=== PATIENT | female | born 1930 | race Two or more races ===

== ENCOUNTER 2017-05-18 01:00 | Inpatient (IN) | payer MEDICARE, OTHER ==
[~2017-05-18] VITALS: Ht 160 cm; Wt 68.9 kg
[2017-05-18] MEDS ORDERED: PANTOPRAZOLE SODIUM 40 MG VIAL IV ONE (01:30)
[2017-05-18] MEDS ORDERED: ONDANSETRON 4 MG/2 ML VIAL IV ONE (01:30)
[2017-05-18] MEDS ORDERED: IV NORMAL SALINE 1000 ML BAG IV ONE (01:30)
[2017-05-18 02:00] LABS: BASOPHILS % (AUTO) 0.4 % (0.0-2.0); EOSINOPHILS # (AUTO) 0.1 K/uL (0.0-0.7); EOSINOPHILS % (AUTO) 1.4 % (0.0-7.0); HEMATOCRIT 37.5 % (31.2-41.9); HEMOGLOBIN 12.5 g/dL (10.9-14.3); LYMPHOCYTES # (AUTO) 1.1 K/uL (20.0-40.0); LYMPHOCYTES % (AUTO) 11.5 % (20.5-51.5); MEAN CORPUSCULAR HEMOGLOBIN 30.9 uug (24.7-32.8); MEAN CORPUSCULAR HGB CONC 33 g/dL (32.3-35.6); MEAN CORPUSCULAR VOLUME 93.1 fL (75.5-95.3); MONOCYTES % (AUTO) 10.7 % (0.0-11.0); PLATELET COUNT (AUTO) 191 K/uL (179-408); RED BLOOD CELL COUNT(AUTO) 4.02 MIL/uL (3.63-4.92); WHITE BLOOD COUNT (AUTO) 9.2 K/uL (3.8-11.8)
--- NOTE | 2017-05-18 02:01 | NUR ---
PT IN BED IN ROUTE TO CT
[2017-05-18 02:09] LABS: CARBON DIOXIDE 30 mmol/L (21-32); CHLORIDE 103 mmol/L (98-107); CREATININE 1.5 mg/dL (0.6-1.3); GLUCOSE 121 mg/dL (74-106); POTASSIUM 4.1 mmol/L (3.5-5.1); UREA NITROGEN, BLOOD 48 mg/dL (7-18)
[2017-05-18 02:19] LABS: ALANINE AMINOTRANSFERASE 20 U/L (14-59); ALKALINE PHOSPHATASE 112 U/L (50-136); ASPARTATE AMINOTRANSFERASE 19 U/L (15-37); BILIRUBIN,DIRECT 0.2 mg/dL (0.0-0.2); BILIRUBIN,TOTAL 0.6 mg/dL (0.2-1.0); LIPASE 68 U/L (73-393); TOTAL PROTEIN, SERUM 8.1 g/dL (6.4-8.2)
[2017-05-18] MEDS ORDERED: ONDANSETRON 4 MG/2 ML VIAL ONE (02:19)
[2017-05-18] MEDS ORDERED: PANTOPRAZOLE SODIUM 40 MG VIAL ONE (02:19)
--- NOTE | 2017-05-18 02:19 | NUR ---
PT IN BED. PT RETURNS FROM CT.
[2017-05-18] MEDS ORDERED: CHLO473M3 PO (02:21)
[2017-05-18] MEDS ORDERED: SPIR25TA4 GT (02:21)
[2017-05-18] MEDS ORDERED: ALBU2.5V38 IH (02:21)
[2017-05-18] MEDS ORDERED: LANS30CA56 GT (02:21)
[2017-05-18] MEDS ORDERED: MAGN400O6 GT (02:21)
[2017-05-18] MEDS ORDERED: IPRA0.2S48 IH (02:21)
[2017-05-18] MEDS ORDERED: CALCIUM CARBONATE GT (02:21)
[2017-05-18] MEDS ORDERED: ACET-2154 GT (02:21)
[2017-05-18] MEDS ORDERED: AMANTADINE GT (02:21)
[2017-05-18] MEDS ORDERED: NA P133E RC (02:21)
[2017-05-18] MEDS ORDERED: LEVO125T8 GT (02:21)
[2017-05-18] MEDS ORDERED: APIX2.5T PO (02:21)
[2017-05-18] MEDS ORDERED: METO50TA16 GT (02:21)
[2017-05-18] MEDS ORDERED: HYDR-4076 GT (02:21)
[2017-05-18] MEDS ORDERED: DILT-32 GT (02:21)
[2017-05-18] MEDS ORDERED: FURO40TA5 GT (02:21)
[2017-05-18] MEDS ORDERED: LOSA50TA21 GT (02:21)
[2017-05-18] MEDS ORDERED: BISA10SU8 RC (02:21)
--- NOTE | 2017-05-18 02:58 | NUR ---
PT IN BED. VSS. BREATH SOUNDS NORMAL AND UNLABORED. NO SIGNS OF DISTRESS NOTICED AT THIS TIME.
--- NOTE | 2017-05-18 03:02 | NUR ---
REPORT GIVEN TO CHERIE MELISSA IN TELE
--- NOTE | 2017-05-18 03:56 | NUR ---
Received pt 0339 awake and nonverbal. Pt noted to have maroon colored rectal discharge. Tele noted to be A-fib with HR in the 120's. No distress noted at this time. On 3L O2 via trach collar. Bed in low, locked position. Bed alarm on. Call light within reach.
[2017-05-18 03:59] VITALS: BP 123/63
[2017-05-18] MEDS: IV NS 1000 ML 1,000 ML IV PRN ×2 (05:49→23:51)
[2017-05-18 07:05] LABS: BASOPHILS % (AUTO) 0.3 % (0.0-2.0); EOSINOPHILS # (AUTO) 0.1 K/uL (0.0-0.7); EOSINOPHILS % (AUTO) 1.7 % (0.0-7.0); HEMATOCRIT 36.6 % (31.2-41.9); HEMOGLOBIN 12.1 g/dL (10.9-14.3); LYMPHOCYTES # (AUTO) 1.1 K/uL (20.0-40.0); LYMPHOCYTES % (AUTO) 13.7 % (20.5-51.5); MEAN CORPUSCULAR HEMOGLOBIN 31.3 uug (24.7-32.8); MEAN CORPUSCULAR HGB CONC 33 g/dL (32.3-35.6); MEAN CORPUSCULAR VOLUME 94.2 fL (75.5-95.3); MONOCYTES # (AUTO) 0.7 K/uL (2.0-10.0); MONOCYTES % (AUTO) 9.3 % (0.0-11.0); NEUTROPHILS # (AUTO) 5.9 K/uL (1.8-8.9); PLATELET COUNT (AUTO) 188 K/uL (179-408); RED BLOOD CELL COUNT(AUTO) 3.88 MIL/uL (3.63-4.92); WHITE BLOOD COUNT (AUTO) 7.9 K/uL (3.8-11.8)
--- NOTE | 2017-05-18 07:15 | NUR ---
IV line noted to be leaking and removed. Pt is hard stick, called MD for midline order. Trach site care provided and dressing change done; suctioned trach PRN thick greenish mucus noted. Pt needs frequent suctioning. Pt tolerated suction well. Tele noted to be a-fib with HR in the 120's. Pain management provided. Daughter at bedside, awaiting MD for possible EGD procedure today. Pt resting comfortably at this time. Report given to Flavia MELISSA.
[2017-05-18 07:22] LABS: ALANINE AMINOTRANSFERASE 21 U/L (14-59); ALKALINE PHOSPHATASE 107 U/L (50-136); ASPARTATE AMINOTRANSFERASE 25 U/L (15-37); BILIRUBIN,TOTAL 0.6 mg/dL (0.2-1.0); CARBON DIOXIDE 29 mmol/L (21-32); CHLORIDE 105 mmol/L (98-107); CREATININE 1.3 mg/dL (0.6-1.3); GLUCOSE 104 mg/dL (74-106); MAGNESIUM 2.7 mg/dL (1.8-2.4); PHOSPHOROUS 3.7 mg/dL (2.5-4.9); POTASSIUM 4.1 mmol/L (3.5-5.1); TOTAL PROTEIN, SERUM 7.3 g/dL (6.4-8.2); UREA NITROGEN, BLOOD 46 mg/dL (7-18)
--- NOTE | 2017-05-18 07:30 | NUR ---
Sleeping, comfortable, daughter at bedside. Trach to aerosol at 6L FIO2 30%. GT clamped, NPO instructed. Plan for EGD, daughter will wait for MD. No IV access, unsuccessful attempts, will get order for midline
[2017-05-18] MEDS: MORPHINE SULFATE 4 MG/1 ML DISP.SYRIN IV PRN (07:34)
[2017-05-18 08:17] LABS: THYROID STIMULATING HORMONE 1.031 mIU/mL (0.358-3.740)
[2017-05-18] MEDS ORDERED: DILTIAZEM HCL CD 120 MG CAP.SR.24H PO SCH (08:45)
[2017-05-18] MEDS ORDERED: FLEET ENEMA 133 ML BOTTLE RC PRN (08:45)
[2017-05-18] MEDS ORDERED: BISACODYL 10 MG SUPP.RECT RC PRN (08:45)
[2017-05-18] MEDS ORDERED: ACETAMINOPHEN 325 MG TABLET GT PRN (08:45)
[2017-05-18] MEDS ORDERED: IPRATROPIUM BROMIDE 0.5 MG/2.5 ML NEBU IH PRN (08:45)
[2017-05-18] MEDS ORDERED: ALBUTEROL SULFATE 2.5 MG/3 ML NEBU IH PRN (08:45)
[2017-05-18] MEDS ORDERED: MAGNESIUM HYDROXIDE 30 ML LIQUID UDC GT PRN (08:45)
[2017-05-18] MEDS ORDERED: PANTOPRAZOLE ORAL SUSPENSION 40 MG SUSPDR.PKT GT SCH (08:45)
[2017-05-18] MEDS ORDERED: ACETAMINOPHEN 650 MG/20.3 ML LIQUID UDC GT PRN (09:00)
[2017-05-18] MEDS ORDERED: LOSARTAN POTASSIUM 50 MG TABLET GT SCH (09:00)
[2017-05-18] MEDS ORDERED: CALCIUM CARBONATE 500 MG TABLET PO SCH (09:00)
[2017-05-18] MEDS ORDERED: ALBUTEROL SULFATE 2.5 MG/ 0.5 ML NEBU NEB PRN (09:00)
[2017-05-18] MEDS: FUROSEMIDE 40 MG TABLET GT SCH (09:25)
[2017-05-18] MEDS: LEVOTHYROXINE SODIUM 125 MCG TABLET GT SCH (09:25)
[2017-05-18] MEDS: SPIRONOLACTONE 25 MG TABLET GT SCH (09:25)
[2017-05-18] MEDS: CALCIUM CARBONATE 500 MG TABLET GT SCH ×2 (09:26→21:51)
[2017-05-18] MEDS: METOPROLOL TARTRATE 50 MG TABLET GT SCH ×2 (09:26→21:51)
--- NOTE | 2017-05-18 09:26 | NUR ---
HR 135 Afib; BP 106/54, Carvedilol given, will monitor BP
[2017-05-18] MEDS: PANTOPRAZOLE SODIUM 40 MG VIAL IV SCH ×2 (09:27→21:50)
[2017-05-18] MEDS: CHLORHEXIDINE GLUCONATE 15 ML MOUTHWASH MM SCH ×2 (09:27→21:51)
[2017-05-18] MEDS: Z GUARD REMEDY PASTE 57 GM TUBE TOP SCH ×2 (09:27→21:51)
[2017-05-18] MEDS: AMANTADINE HCL 100 MG CAPSULE GT SCH ×2 (09:27→21:50)
[2017-05-18 10:53] VITALS: BP 90/54
[2017-05-18] MEDS ORDERED: FIBERSOURCE HN 1000ML LIQUID GT SCH (11:15)
--- NOTE | 2017-05-18 11:15 | NUR ---
With BM to bloody stool, specimen sent to lab. Incontinence care done. 1st step mattress placed. Repositioned in bed comfortably. Midline ordered, waiting for nurse.
[2017-05-18] MEDS ORDERED: DILTIAZEM HCL 60 MG TABLET GT SCH (12:00)
[2017-05-18 12:13] LABS: BASOPHILS % (AUTO) 0.4 % (0.0-2.0); EOSINOPHILS # (AUTO) 0.2 K/uL (0.0-0.7); EOSINOPHILS % (AUTO) 3.5 % (0.0-7.0); HEMATOCRIT 35.4 % (31.2-41.9); HEMOGLOBIN 11.6 g/dL (10.9-14.3); LYMPHOCYTES # (AUTO) 1.1 K/uL (20.0-40.0); LYMPHOCYTES % (AUTO) 17.4 % (20.5-51.5); MEAN CORPUSCULAR HEMOGLOBIN 31.1 uug (24.7-32.8); MEAN CORPUSCULAR HGB CONC 33 g/dL (32.3-35.6); MONOCYTES # (AUTO) 0.6 K/uL (2.0-10.0); MONOCYTES % (AUTO) 10.4 % (0.0-11.0); NEUTROPHILS # (AUTO) 4.2 K/uL (1.8-8.9); NEUTROPHILS % (AUTO) 68.3 % (38.5-71.5); PLATELET COUNT (AUTO) 172 K/uL (179-408); RED BLOOD CELL COUNT(AUTO) 3.73 MIL/uL (3.63-4.92); WHITE BLOOD COUNT (AUTO) 6.1 K/uL (3.8-11.8)
[2017-05-18 12:36] LABS: *OCCULT BLOOD STOOL POSITIVE (NEGATIVE)
[2017-05-18] MEDS ORDERED: hydrALAZINE HCL 25 MG TABLET GT SCH (14:00)
[2017-05-18 15:01] VITALS: BP 97/51
--- NOTE | 2017-05-18 16:00 | NUR ---
Midline placed to Left upper arm, IVF started
--- NOTE | 2017-05-18 18:09 | NUR ---
Trach suctioned to thick yellowish greenish secretions. Oral care done. Tele Afib 118-122. Repositioned comfortably
--- NOTE | 2017-05-18 19:30 | NUR ---
Pt a/a, with trach collar in place no distress noted.
[2017-05-18 20:00] VITALS: BP 108/54
[2017-05-19 00:18] VITALS: BP 136/67
[2017-05-19 04:00] VITALS: BP 131/65
[2017-05-19] MEDS: LEVOTHYROXINE SODIUM 125 MCG TABLET GT SCH (06:44)
[2017-05-19] MEDS ORDERED: DILTIAZEM HCL 30 MG TABLET PO SCH (09:00)
[2017-05-19 09:17] LABS: ABG BASE EXCESS -0.6 mmol/L; ABG HCO3 23.4 mmol/L; ABG PO2 99.1 mmHg (75.0-100.0); ABG SITE RIGHT RADIAL; COHb 0.9 % (0.5-1.5); MetHb 0.3 % (0.0-1.5); O2Hb 96.6 % (94.0-97.0)
[2017-05-19] MEDS: SPIRONOLACTONE 25 MG TABLET GT SCH (09:41)
[2017-05-19] MEDS: PANTOPRAZOLE SODIUM 40 MG VIAL IV SCH ×2 (09:42→21:52)
[2017-05-19] MEDS: CALCIUM CARBONATE 500 MG TABLET GT SCH ×2 (09:42→21:53)
[2017-05-19] MEDS: DILTIAZEM HCL 30 MG TABLET GT SCH ×3 (09:42→21:52)
[2017-05-19] MEDS: FUROSEMIDE 40 MG TABLET GT SCH (09:42)
[2017-05-19] MEDS: METOPROLOL TARTRATE 50 MG TABLET GT SCH ×2 (09:42→21:53)
[2017-05-19] MEDS: Z GUARD REMEDY PASTE 57 GM TUBE TOP SCH ×2 (09:43→21:54)
[2017-05-19] MEDS: AMANTADINE HCL 100 MG CAPSULE GT SCH ×2 (09:44→21:53)
[2017-05-19] MEDS: CHLORHEXIDINE GLUCONATE 15 ML MOUTHWASH MM SCH ×2 (09:44→21:53)
--- NOTE | 2017-05-19 10:00 | NUR ---
Pt pulling on IV lines and P mist with her left hand. Pt was hitting TANK OPERATOR during am care. Decreased stimuli on pt and made pt more comfortable by repositioning pt and giving am care. will monitor pt.
--- NOTE | 2017-05-19 11:00 | NUR ---
Pt now attempting to pull on her G Tube. Prior intervention not effective. Hide tubings so that pt wont be able to pull her lines. Turned on tv for distraction. Will continue to monitor pt.
[2017-05-19] MEDS: MORPHINE SULFATE 4 MG/1 ML DISP.SYRIN IV PRN (11:39)
[2017-05-19 11:57] VITALS: BP 131/74
--- NOTE | 2017-05-19 12:00 | NUR ---
Called Dr malave got orders for mittens. Mittens applied on left hand for safety and prevent pt from pulling on her lines and Gtube.
--- NOTE | 2017-05-19 15:00 | NUR ---
Notified Dr Foley of pt EGD was canceled secondary pt was having uncontrolled rapid afib earlier. Pt currently have hr 100's afib and that metropolol was given earlier. Dr Foley to eval pt's cardiac meds. Call light is within reach. Started IV on right ac 20 gauge secondary to MIDLINE on left upper brachial line has too much pressure when IVF is being given.
[2017-05-19 15:54] VITALS: BP 144/78
[2017-05-19] MEDS: DIGOXIN 500 MCG/2 ML AMP IV SCH ×2 (16:41→22:36)
--- NOTE | 2017-05-19 18:37 | NUR ---
Dr urbina saw pt. DIG given as ordered. Pt's HR @ 102. Sputum sent. Call light is within within reach.
--- NOTE | 2017-05-19 19:20 | NUR ---
Received patient awake, non -verbal , not in distress. HOB elevated with trach collar connected to P mist FIO2 40%. GT clamped, Kept NPO. Continue care as planned.
[2017-05-19 20:00] VITALS: BP 146/62
--- NOTE | 2017-05-19 21:05 | NUR ---
Left message to answering service for Dr. Castellanos. RE: Pt NPO for EGD in AM , no IV fluid ordered. Awaiting for Dr Cox to call back for an order. Charge Nurse aware.
[2017-05-19] MEDS ORDERED: IV D5W-0.45% NS 1000 ML BAG IV SCH ×2 (21:15→22:15)
--- NOTE | 2017-05-19 21:18 | NUR ---
Dr Cox called back with new order of D5 1/2 NS at 50 cc/hour.
[2017-05-19] MEDS ORDERED: IV D5W-0.45% NS 1000 ML BAG IV ONE (21:45)
[2017-05-19] MEDS: IV D5 1/2 NS 1000 ML 1,000 ML IV PRN (22:55)
[2017-05-20] VITALS: BP 95/56
[2017-05-20] MEDS: DILTIAZEM HCL 30 MG TABLET GT SCH ×4 (02:24→20:24)
[2017-05-20 04:00] VITALS: BP 154/47
[2017-05-20] MEDS: LEVOTHYROXINE SODIUM 125 MCG TABLET GT SCH (06:40)
[2017-05-20 07:03] LABS: BASOPHILS % (AUTO) 0.4 % (0.0-2.0); EOSINOPHILS # (AUTO) 0.2 K/uL (0.0-0.7); HEMATOCRIT 38.3 % (31.2-41.9); HEMOGLOBIN 12.4 g/dL (10.9-14.3); LYMPHOCYTES % (AUTO) 16.2 % (20.5-51.5); MEAN CORPUSCULAR HEMOGLOBIN 30.8 uug (24.7-32.8); MEAN CORPUSCULAR HGB CONC 33 g/dL (32.3-35.6); MEAN CORPUSCULAR VOLUME 94.8 fL (75.5-95.3); MONOCYTES # (AUTO) 0.6 K/uL (2.0-10.0); MONOCYTES % (AUTO) 9.7 % (0.0-11.0); NEUTROPHILS # (AUTO) 4.2 K/uL (1.8-8.9); NEUTROPHILS % (AUTO) 70.7 % (38.5-71.5); PLATELET COUNT (AUTO) 183 K/uL (179-408); RED BLOOD CELL COUNT(AUTO) 4.04 MIL/uL (3.63-4.92)
--- NOTE | 2017-05-20 07:08 | NUR ---
Kept NPO as ordered. No gignificant event reported all night. All needs attended and met. Continue current plan of care.
[2017-05-20 07:24] LABS: CARBON DIOXIDE 27 mmol/L (21-32); CHLORIDE 108 mmol/L (98-107); GLUCOSE 99 mg/dL (74-106); MAGNESIUM 1.9 mg/dL (1.8-2.4); PHOSPHOROUS 2.6 mg/dL (2.5-4.9); POTASSIUM 3.6 mmol/L (3.5-5.1); UREA NITROGEN, BLOOD 29 mg/dL (7-18)
[2017-05-20] MEDS: SPIRONOLACTONE 25 MG TABLET GT SCH (08:22)
[2017-05-20] MEDS: CALCIUM CARBONATE 500 MG TABLET GT SCH ×2 (08:23→20:24)
[2017-05-20] MEDS: METOPROLOL TARTRATE 50 MG TABLET GT SCH ×2 (08:23→20:24)
[2017-05-20] MEDS: FUROSEMIDE 40 MG TABLET GT SCH (08:23)
[2017-05-20] MEDS: PANTOPRAZOLE SODIUM 40 MG VIAL IV SCH (08:24)
[2017-05-20] MEDS: CHLORHEXIDINE GLUCONATE 15 ML MOUTHWASH MM SCH ×2 (08:24→20:25)
[2017-05-20] MEDS: Z GUARD REMEDY PASTE 57 GM TUBE TOP SCH ×2 (08:24→20:25)
[2017-05-20] MEDS: AMANTADINE HCL 100 MG CAPSULE GT SCH ×2 (08:25→20:22)
--- NOTE | 2017-05-20 11:16 | NUR ---
SPOKE WITH SHERYL AND LEFT MESSAGE FOR BREANNA FRASER NP RE: PT EGD SCHEDULE. AWAITING CALL BACK.
[2017-05-20 11:42] VITALS: BP 140/70
--- NOTE | 2017-05-20 13:00 | NUR ---
RECEIVED CALL BACK FROM EREN CARLOS. PT FOR EGD TOMORROW AT 8AM. OBTAINED NEW ORDER TO START GTUBE FEEDING. DAUGHTER AT BEDSIDE AND MADE AWARE. TRACH CARE RENDERED.
[2017-05-20 15:50] VITALS: BP 152/77
[2017-05-20] MEDS ORDERED: FIBERSOURCE HN 1000ML LIQUID GT SCH (16:37)
--- NOTE | 2017-05-20 17:43 | NUR ---
PT ADMITTED FOR GI BLEED. NO S/S OF ACTIVE BLEEDING NOTED. NO VOMITING OR TARRY STOOLS NOTED. NO HEMATURIA.
[2017-05-20 20:00] VITALS: BP 169/74
[2017-05-20] MEDS: PANTOPRAZOLE ORAL SUSPENSION 40 MG SUSPDR.PKT GT SCH (20:24)
--- NOTE | 2017-05-20 20:30 | NUR ---
Received PT awake and noted to be aphasic. No distress noted. Feeding tube noted to be running at 10 ml/hr. GT ensured patent, no residual noted. Bed in low, locked position. Bed alarm on. Call light within reach. Will continue to monitor.
[2017-05-20] MEDS: IV D5 1/2 NS 1000 ML 1,000 ML IV PRN (22:35)
[2017-05-21] VITALS: BP 140/88
--- NOTE | 2017-05-21 | NUR ---
Feeding d/c for now. NPO/stomach- for EGD procedure in AM.
[2017-05-21] MEDS: DILTIAZEM HCL 30 MG TABLET GT SCH (03:13)
[2017-05-21 04:00] VITALS: BP 155/104
[2017-05-21] MEDS: LEVOTHYROXINE SODIUM 125 MCG TABLET GT SCH (04:06)
--- NOTE | 2017-05-21 04:30 | NUR ---
Trach site care done, suctioned PRN. Incontinence care provided. Patient agitated at this time. BP elevated due to agitation. Afib 90s on the monitor.
[2017-05-21] MEDS ORDERED: LIDOCAINE HCL 1% 20 ML VIAL MC ONE (07:13)
[2017-05-21] MEDS ORDERED: PROPOFOL 200 MG/20 ML BOTTLE IV ONE (07:13)
[2017-05-21 07:24] LABS: BASOPHILS % (AUTO) 0.4 % (0.0-2.0); EOSINOPHILS # (AUTO) 0.2 K/uL (0.0-0.7); EOSINOPHILS % (AUTO) 4.2 % (0.0-7.0); HEMATOCRIT 38.4 % (31.2-41.9); HEMOGLOBIN 12.7 g/dL (10.9-14.3); LYMPHOCYTES # (AUTO) 1.1 K/uL (20.0-40.0); LYMPHOCYTES % (AUTO) 19.9 % (20.5-51.5); MEAN CORPUSCULAR HEMOGLOBIN 30.7 uug (24.7-32.8); MEAN CORPUSCULAR HGB CONC 33 g/dL (32.3-35.6); MEAN CORPUSCULAR VOLUME 92.3 fL (75.5-95.3); MONOCYTES # (AUTO) 0.4 K/uL (2.0-10.0); MONOCYTES % (AUTO) 8.1 % (0.0-11.0); NEUTROPHILS # (AUTO) 3.7 K/uL (1.8-8.9); NEUTROPHILS % (AUTO) 67.4 % (38.5-71.5); PLATELET COUNT (AUTO) 208 K/uL (179-408); RED BLOOD CELL COUNT(AUTO) 4.16 MIL/uL (3.63-4.92); WHITE BLOOD COUNT (AUTO) 5.5 K/uL (3.8-11.8)
--- NOTE | 2017-05-21 07:30 | NUR ---
Patient in Surgery for EGD
[2017-05-21 08:38] LABS: CARBON DIOXIDE 29 mmol/L (21-32); CHLORIDE 100 mmol/L (98-107); GLUCOSE 106 mg/dL (74-106); MAGNESIUM 1.6 mg/dL (1.8-2.4); PHOSPHOROUS 2.3 mg/dL (2.5-4.9); POTASSIUM 2.9 mmol/L (3.5-5.1); UREA NITROGEN, BLOOD 19 mg/dL (7-18)
[2017-05-21] MEDS: Z GUARD REMEDY PASTE 57 GM TUBE TOP SCH ×2 (09:00→21:13)
[2017-05-21 10:00] VITALS: BP 168/87
[2017-05-21] MEDS ORDERED: POTASSIUM CHLORIDE 50 ML IV SCH (10:00)
[2017-05-21] MEDS ORDERED: POTASSIUM CHLORIDE 20 MEQ POWDER PACKET GT ONE (10:00)
--- NOTE | 2017-05-21 10:00 | NUR ---
Received from OR. In stable condition. Asleep but easily wakes up to voice. Intact IV line over R AC G20. Resumed feeding as ordered. No residuals on checking.
[2017-05-21] MEDS: CHLORHEXIDINE GLUCONATE 15 ML MOUTHWASH MM SCH ×2 (10:38→21:11)
[2017-05-21] MEDS: FUROSEMIDE 40 MG TABLET GT SCH ×2 (10:40→11:12)
[2017-05-21] MEDS: PANTOPRAZOLE ORAL SUSPENSION 40 MG SUSPDR.PKT GT SCH ×2 (10:40→21:13)
[2017-05-21] MEDS: SPIRONOLACTONE 25 MG TABLET GT SCH (10:40)
[2017-05-21] MEDS: AMANTADINE HCL 100 MG CAPSULE GT SCH ×2 (10:41→21:11)
[2017-05-21] MEDS: CALCIUM CARBONATE 500 MG TABLET GT SCH ×2 (10:41→21:11)
[2017-05-21] MEDS: METOPROLOL TARTRATE 50 MG TABLET GT SCH ×2 (10:41→21:12)
[2017-05-21] MEDS: MAGNESIUM SULFATE/D5W 100 ML IV SCH ×2 (10:42→11:57)
[2017-05-21 11:00] VITALS: BP 178/75
[2017-05-21] MEDS: POTASSIUM CHLORIDE 10 MEQ in IV NORMAL SALINE 50 ML IV SCH ×2 (13:11→15:46)
[2017-05-21] MEDS ORDERED: DILTIAZEM HCL 30 MG TABLET GT SCH (15:00)
[2017-05-21] MEDS ORDERED: NEUTRA PHOS PACKET PO ONE (15:15)
[2017-05-21 15:52] VITALS: BP 150/88
[2017-05-21] MEDS: DILTIAZEM HCL 60 MG TABLET GT SCH ×2 (15:52→21:13)
--- NOTE | 2017-05-21 20:00 | NUR ---
Received pt in bed and awake with feeding running at 45 ml/hr. No distress noted. Pt suctioned and tolerated well. Will continue to monitor.
[2017-05-21 20:55] VITALS: BP 127/57
[2017-05-22] VITALS: BP 142/61
[2017-05-22] MEDS: IV D5 1/2 NS 1000 ML 1,000 ML IV PRN (01:27)
[2017-05-22] MEDS: DILTIAZEM HCL 60 MG TABLET GT SCH ×3 (03:08→14:20)
[2017-05-22 04:00] VITALS: BP 147/70
[2017-05-22] MEDS: LEVOTHYROXINE SODIUM 125 MCG TABLET GT SCH (06:09)
--- NOTE | 2017-05-22 06:28 | NUR ---
No distress noted at this time. Tele noted to be controlled A-fib with HR in the 80's.
[2017-05-22 07:00] LABS: BASOPHILS % (AUTO) 0.4 % (0.0-2.0); EOSINOPHILS # (AUTO) 0.3 K/uL (0.0-0.7); EOSINOPHILS % (AUTO) 5.2 % (0.0-7.0); HEMATOCRIT 36.9 % (31.2-41.9); HEMOGLOBIN 12.3 g/dL (10.9-14.3); LYMPHOCYTES # (AUTO) 1.4 K/uL (20.0-40.0); LYMPHOCYTES % (AUTO) 22.1 % (20.5-51.5); MEAN CORPUSCULAR HEMOGLOBIN 30.7 uug (24.7-32.8); MEAN CORPUSCULAR HGB CONC 33 g/dL (32.3-35.6); MEAN CORPUSCULAR VOLUME 92.4 fL (75.5-95.3); MONOCYTES # (AUTO) 0.5 K/uL (2.0-10.0); MONOCYTES % (AUTO) 7.8 % (0.0-11.0); NEUTROPHILS % (AUTO) 64.5 % (38.5-71.5); PLATELET COUNT (AUTO) 201 K/uL (179-408); RED BLOOD CELL COUNT(AUTO) 3.99 MIL/uL (3.63-4.92); WHITE BLOOD COUNT (AUTO) 6.1 K/uL (3.8-11.8)
[2017-05-22 07:14] LABS: ALANINE AMINOTRANSFERASE 20 U/L (14-59); ALKALINE PHOSPHATASE 94 U/L (50-136); ASPARTATE AMINOTRANSFERASE 22 U/L (15-37); BILIRUBIN,TOTAL 0.6 mg/dL (0.2-1.0); CARBON DIOXIDE 29 mmol/L (21-32); CHLORIDE 102 mmol/L (98-107); CREATININE 0.8 mg/dL (0.6-1.3); GLUCOSE 103 mg/dL (74-106); MAGNESIUM 1.9 mg/dL (1.8-2.4); PHOSPHOROUS 2.3 mg/dL (2.5-4.9); POTASSIUM 3.5 mmol/L (3.5-5.1); TOTAL PROTEIN, SERUM 7.5 g/dL (6.4-8.2); UREA NITROGEN, BLOOD 17 mg/dL (7-18)
[2017-05-22] MEDS: PANTOPRAZOLE ORAL SUSPENSION 40 MG SUSPDR.PKT GT SCH (08:02)
[2017-05-22] MEDS: AMANTADINE HCL 100 MG CAPSULE GT SCH (08:03)
[2017-05-22] MEDS: CHLORHEXIDINE GLUCONATE 15 ML MOUTHWASH MM SCH (08:03)
[2017-05-22] MEDS: SPIRONOLACTONE 25 MG TABLET GT SCH (08:03)
[2017-05-22] MEDS: CALCIUM CARBONATE 500 MG TABLET GT SCH (08:03)
[2017-05-22] MEDS: METOPROLOL TARTRATE 50 MG TABLET GT SCH (08:05)
[2017-05-22] MEDS ORDERED: PANT40SU2 GT (08:05)
[2017-05-22] MEDS: FUROSEMIDE 40 MG TABLET GT SCH (08:05)
[2017-05-22] MEDS: Z GUARD REMEDY PASTE 57 GM TUBE TOP SCH (08:06)
[2017-05-22] MEDS ORDERED: MAGNESIUM SULFATE/D5W 100 ML IV SCH (08:17)
[2017-05-22 10:57] VITALS: BP 127/89
[2017-05-22 15:00] VITALS: BP 139/55
[2017-05-22] MEDS ORDERED: NEUTRA PHOS PACKET GT ONE (16:45)
--- NOTE | 2017-05-22 17:00 | NUR ---
Patient discharged to [facility] as ordered, awaiting for ambulance transportation. Patient is on GT feeding 45ml/hr as ordered, no residual noted, flushed as ordered, bowel sounds present. Aspiration precaution, HOB elevated at all times, bed in low position. Patient is NPO, oral care provided, suctioned as needed. Patient kept clean/dry, repositioned for comfort. Safety measures in place. Will continue to monitor.
--- NOTE | 2017-05-22 17:40 | NUR ---
Patient discharged to [facility], report given to BRANDEE Yuan, daughter Emilia notified. Patient picked up by ambulance. Patient is alert, in no distress. Patient is on trach 8L 30% fiO2. Tele monitor, ID band, IV access, GT feeding removed/off. VS stable, afebrile. Patient left the floor via gurney.
== END 2017-05-22 17:30 | DRG 377 ==
LOC: ER 01:03 → TELE 03:19
PROVIDERS: ADMIT Internal Medicine; ATTEND Internal Medicine
PROC: 05H633Z Insertion of Infusion Device into Left Subclavian Vein, Percutaneous Approach (ICD-10-PCS; 2017-05-18)
PROC: B547ZZA Ultrasonography of Left Subclavian Vein, Guidance (ICD-10-PCS; 2017-05-18)
PROC: 0DB78ZX Excision of Stomach, Pylorus, Via Natural or Artificial Opening Endoscopic, Diagnostic (ICD-10-PCS; 2017-05-21)
PROC: 0DB38ZX Excision of Lower Esophagus, Via Natural or Artificial Opening Endoscopic, Diagnostic (ICD-10-PCS; principal; 2017-05-21 08:00)
DX: K29.71 Gastritis, unspecified, with bleeding (principal); I21.A1 Myocardial infarction type 2; N17.9 Acute kidney failure, unspecified; J96.11 Chronic respiratory failure with hypoxia; Z93.0 Tracheostomy status; I48.2 Chronic atrial fibrillation; E86.0 Dehydration; R13.10 Dysphagia, unspecified; E83.39 Other disorders of phosphorus metabolism; E44.1 Mild protein-calorie malnutrition; I69.351 Hemiplegia and hemiparesis following cerebral infarction affecting right dominant side; G20 Parkinson's disease; E83.42 Hypomagnesemia; I11.0 Hypertensive heart disease with heart failure; I50.9 Heart failure, unspecified; Z93.1 Gastrostomy status; K44.9 Diaphragmatic hernia without obstruction or gangrene; Z79.899 Other long term (current) drug therapy; Z79.01 Long term (current) use of anticoagulants; K21.9 Gastro-esophageal reflux disease without esophagitis; E87.6 Hypokalemia; E78.5 Hyperlipidemia, unspecified; D64.9 Anemia, unspecified; Z85.3 Personal history of malignant neoplasm of breast; Z95.5 Presence of coronary angioplasty implant and graft; I25.10 Atherosclerotic heart disease of native coronary artery without angina pectoris; E03.9 Hypothyroidism, unspecified
CPT/HCPCS: 36415; 36569; 36600; 70030-TC; 71045; 83605; 83690; 83735; 84100; 84443; 85025; 85730; 86850; 86900; 86901; 87040; 87070; 88342; 93005; 93307; A4217; A4663; C9113; J1160; J2270; J2405; J3475; J3480; J3490; J7030